=== PATIENT | male | born 1955 | race Caucasian/White ===

== ENCOUNTER 2021-02-07 11:30 | Inpatient (IN) ==
[2021-02-07] MEDS: Lactated Ringers 1000 ml BAG 1,000 ML IV SCH (12:38)
[2021-02-07 12:47] LABS: Hemoglobin 5.5 g/dL (14.0-18.0)
[2021-02-07 12:48] LABS: ABS Lymphocytes 1.6 10^3/ul (1.0-4.8); ABS Monocytes 0.7 10^3/ul (0-0.8); ABS Neutrophils 11.8 10^3/ul (1.5-7.7); Eosinophil % 0.3 %; Hematocrit 17 % (42-52); Lymphocyte % 11.1 %; Mean Corpuscular HGB Conc 33 g/dL (31-36); Mean Corpuscular Hemoglobin 29 pg (27-31); Mean Corpuscular Volume 89 fL (80-94); Mean Platelet Volume 6.6 fL (7.4-10.4); Platelet Count 441 10^3/uL (150-450); Red Blood Count 1.88 10^6 /uL (4.18-5.48); Red Cell Distribution Width 15 % (10-15); White Blood Count 14.1 10^3/uL (3.5-10.8)
[2021-02-07] MEDS ORDERED: Pantoprazole 80 mg in NS BAG 80 MG/250 ML BAG IV ONE (12:49)
[2021-02-07 13:01] LABS: Albumin 3.3 g/dL (3.2-5.2); Albumin/Globulin Ratio 1.5 (1-3); Calcium 7.5 mg/dL (8.6-10.3); EGFR African American 150.9 (>60); EGFR Non-African American 124.7 (>60); Globulin 2.2 g/dL (2-4); Total Bilirubin 0.2 mg/dL (0.2-1.0); Total Protein 5.5 g/dL (6.4-8.9)
[2021-02-08] MEDS: Lactated Ringers 1000 ml BAG 1,000 ML IV SCH ×3 (01:41→18:58)
[2021-02-08 01:50] LABS: Hematocrit 23 % (42-52); Hemoglobin 8.1 g/dL (14.0-18.0)
[2021-02-08 07:37] LABS: ABS Basophils 0.1 10^3/ul (0-0.2); ABS Eosinophils 0.2 10^3/ul (0-0.6); ABS Lymphocytes 2.7 10^3/ul (1.0-4.8); ABS Monocytes 1.1 10^3/ul (0-0.8); ABS Neutrophils 8.1 10^3/ul (1.5-7.7); Eosinophil % 1.9 %; Hematocrit 24 % (42-52); Hemoglobin 8.4 g/dL (14.0-18.0); Lymphocyte % 21.9 %; Mean Corpuscular HGB Conc 35 g/dL (31-36); Mean Corpuscular Hemoglobin 30 pg (27-31); Mean Corpuscular Volume 86 fL (80-94); Mean Platelet Volume 6.8 fL (7.4-10.4); Platelet Count 370 10^3/uL (150-450); Red Cell Distribution Width 14 % (10-15); White Blood Count 12.2 10^3/uL (3.5-10.8)
[2021-02-08 07:45] LABS: Albumin 3.2 g/dL (3.2-5.2); Albumin/Globulin Ratio 1.5 (1-3); Calcium 7.7 mg/dL (8.6-10.3); EGFR African American 125.7 (>60); EGFR Non-African American 103.9 (>60); Globulin 2.2 g/dL (2-4); Potassium 3.7 mmol/L (3.5-5.0); Total Bilirubin 0.9 mg/dL (0.2-1.0); Total Protein 5.4 g/dL (6.4-8.9)
[2021-02-08] MEDS ORDERED: Pantoprazole 80 mg in NS BAG 80 MG/250 ML BAG IV SCH (10:00)
[2021-02-08] MEDS ORDERED: Midazolam 10 mg/10 ml VIAL 1 mg/ml 10 ml VIAL (10 mg) ONE (11:14)
[2021-02-08] MEDS ORDERED: fentaNYL 100 mcg/2 ml 50 MCG/ML VIAL ONE (11:14)
[2021-02-08] MEDS ORDERED: diPHENhydraMINE IV 50 MG/ML 1 ml VIAL (BENADRYL) ONE (12:18)
[2021-02-08] MEDS ORDERED: Naloxone 0.4 mg VIAL 0.4 mg/ml 1 ml VIAL ONE (12:40)
[2021-02-08] MEDS: Heparin 5000 UNITS/ML 1 mL VIAL SUBCUT SCH (22:19)
[2021-02-09] MEDS: Lactated Ringers 1000 ml BAG 1,000 ML IV SCH (02:16)
[2021-02-09 06:06] LABS: ABS Eosinophils 0.3 10^3/ul (0-0.6); ABS Lymphocytes 2.8 10^3/ul (1.0-4.8); ABS Monocytes 0.9 10^3/ul (0-0.8); Eosinophil % 2.4 %; Hematocrit 24 % (42-52); Hemoglobin 8.3 g/dL (14.0-18.0); Lymphocyte % 25.4 %; Mean Corpuscular HGB Conc 34 g/dL (31-36); Mean Corpuscular Hemoglobin 30 pg (27-31); Mean Corpuscular Volume 87 fL (80-94); Mean Platelet Volume 6.5 fL (7.4-10.4); Platelet Count 397 10^3/uL (150-450); Red Blood Count 2.79 10^6 /uL (4.18-5.48); Red Cell Distribution Width 15 % (10-15)
[2021-02-09 06:23] LABS: Albumin 3.2 g/dL (3.2-5.2); Albumin/Globulin Ratio 1.5 (1-3); EGFR African American 138.4 (>60); EGFR Non-African American 114.4 (>60); Globulin 2.2 g/dL (2-4); Phosphorus 3.3 mg/dL (2.5-5.0); Potassium 3.6 mmol/L (3.5-5.0); Total Bilirubin 0.3 mg/dL (0.2-1.0); Total Protein 5.4 g/dL (6.4-8.9)
[2021-02-09] MEDS: Heparin 5000 UNITS/ML 1 mL VIAL SUBCUT SCH (08:48)
[2021-02-09 11:41] VITALS: BP 130/80
== END 2021-02-09 15:00 | disposition home or self-care (01) | DRG 378 ==
LOC: SSU 11:30 → ED 11:30 → OBSVTOIN 21:22 → SUATTDRO 21:22 → SSU 22:13
PROVIDERS: ADMIT Hospitalist; ATTEND Internal Medicine